=== PATIENT | male | born 1970 | race Caucasian/White ===

== ENCOUNTER → 2016-10-18 | Outpatient (CLI) | payer BC | END | disposition home or self-care (01) | LOC: RADUSWWP 07:04 | PROVIDERS: ATTEND Urology | DX: Z53.9 Procedure and treatment not carried out, unspecified reason (principal) ==

== ENCOUNTER → 2016-10-18 | Outpatient (CLI) | payer BC ==
--- NOTE | 2016-10-18 09:19 | US ---
EXAMINATION TYPE: US scrotum with doppler. Grayscale and color Doppler Duplex imaging performed of maria alejandra medina scrotum. DATE OF EXAM: 10/18/2016 COMPARISON: NONE CLINICAL HISTORY: N43.3 Hydrocele. Swelling EXAM MEASUREMENTS: TESTICLES: Right Testicle: 4.7 x 2.9 x 3.4 cm Left Testicle: 3.9 x 2.4 x 3.4 cm EPIDIDYMIS HEAD: Right Epididymis: not visualized due to large hydrocele Left Epididymis: 1.0 cm Doppler performed to assess for testicular vascularity; good bilateral color flow and waveforms are s een. There is no evidence of testicular torsion. Presence of hydroceles: Right: 12.5 x 6.0 x 7.5cm, Left 2.6 x 0.9 x 2.6cm Presence of varicoceles: unable to assess due to large amount of swelling Large right-sided scrotal fluid collection or hydrocele is seen. There is small left-sided scrotal fl uid collection or hydrocele. No suspicious intratesticular mass is present. Comparison images show symmetric blood flow to both testicles with asymmetric right-sided hydrocele. IMPRESSION: Large right-sided scrotal fluid collection or hydrocele is confirmed.
--- NOTE | 2016-10-18 09:20 | US ---
EXAMINATION TYPE: US groin extremity RT DATE OF EXAM: 10/18/2016 COMPARISON: NONE CLINICAL HISTORY: N43.3 Hydrocele. Assess for hernia at location of right inguinal canal. No hernial seen on right. Scanning of right groin shows benign lymph nodes. No suspicious solid or cystic mass or fluid collect ion is seen. No bowel containing hernia is identified. Real-time scanning was performed by the shellfish sorter utilizing Valsalva and additional dynamic maneuve rs to assess for hernia. Images of the contralateral side were also acquired for direct comparison. IMPRESSION: As above
== END | disposition home or self-care (01) ==
LOC: RADUSWWP 07:05
PROVIDERS: ATTEND Family Medicine
DX: N43.3 Hydrocele, unspecified (principal); N50.89 Other specified disorders of the male genital organs
CPT/HCPCS: 76870; 93975